=== PATIENT | male | born 1990 ===

== ENCOUNTER 2018-09-20 11:01 | Emergency (ER) | payer OTHER ==
[2018-09-20 11:09] VITALS: BMI 29.4
[2018-09-20] MEDS ORDERED: Sodium Chloride 0.9% 1,000 ML IV STA (11:33)
[2018-09-20] MEDS ORDERED: Simethicone 80 mg Chewtab PO STA (11:48)
[2018-09-20 12:47] LABS: ALB/GLOB RATIO 1.3 (1.0-2.1); ALBUMIN 4.9 g/dL (3.5-5.0); ALT/SGPT 33 U/L (21-72); AST/SGOT 31 U/L (17-59); BLOOD UREA NITROGEN 13 mg/dl (9-20); CALCIUM 10.1 mg/dL (8.4-10.2); GFR NON-AFRICAN AMERICAN > 60
[2018-09-20 12:51] LABS: BASO % 0.3 % (0.0-2.0); EOS % 0.5 % (0.0-4.0); HEMOGLOBIN 15.9 g/dL (12.0-18.0); LYMPH # 1.3 K/uL (1.0-4.3); LYMPH % 21.8 % (20.0-40.0); MEAN CELL VOLUME 83.1 fl (80.0-94.0); MEAN CORPUSCULAR HEMOGLOBIN 28.5 pg (27.0-31.0); MEAN CORPUSCULAR HGB CONC 34.3 g/dL (33.0-37.0); MEAN PLATELET VOLUME 9.1 fl (7.2-11.7); MONO # 0.3 K/uL (0.0-0.8); MONO % 5.7 % (0.0-10.0); NEUT # 4.2 K/uL (1.8-7.0); NEUT % 71.7 % (50.0-75.0); NRBC % 0.2 % (0.0-0.0); RBC 5.56 Mil/uL (4.40-5.90); RED CELL DISTRIBUTION WIDTH 13.1 % (11.5-14.5); WHITE BLOOD COUNT 5.8 K/uL (4.8-10.8)
--- NOTE | 2018-09-20 13:06 | ED PDOC ---
HPI: Abdomen Time Seen by Provider: 09/20/18 11:32 Chief Complaint (Nursing): Abdominal Pain Chief Complaint (Provider): Abdominal Pain History Per: Patient History/Exam Limitations: no limitations Onset/Duration Of Symptoms: Days (x1) Current Symptoms Are (Timing): Still Present Location Of Pain/Discomfort: Diffuse Associated Symptoms: Diarrhea Additional Complaint(s): 27 year old male with no significant past medical history who is presenting to the ED for evaluation of episodes of severe abdominal pain associated with diarrhea onset last night. Patient states that he has approximately 6 episodes today and during episodes he reports shooting pain down both arms (worse in left arm) and radiating down to legs and up to neck. He states that he has never had similar episodes in the past and admits that he began to feel ill after eating taco espino[employer] yesterday, however severity increased today. PMD: none provided Past Medical History Reviewed: Historical Data, Nursing Documentation, Vital Signs Vital Signs: Last Vital Signs Temp 97.4 F L 09/20/18 11:08 Pulse 77 09/20/18 11:08 Resp 17 09/20/18 11:08 BP 117/71 09/20/18 11:08 Pulse Ox 98 09/20/18 11:08 - Medical History PMH: Asthma (as child) - Surgical History Surgical History: Hernia Repair - Family History Family History: States: Unknown Family Hx - Social History Current smoker - smoking cessation education provided: No Alcohol: Social Drugs: Denies - Home Medications Home Medications: Ambulatory Orders Medication Instructions Recorded No Known Home Med 09/20/18 - Allergies Allergies/Adverse Reactions: Allergies Allergy/AdvReac Type Severity Reaction Status Date / Time shrimp Allergy ITCHING Verified 09/20/18 11:20 Review of Systems ROS Statement: Except As Marked, All Systems Reviewed And Found Negative Gastrointestinal: Positive for: Abdominal Pain, Diarrhea Musculoskeletal: Positive for: Neck Pain, Arm Pain, Leg Pain Physical Exam - Reviewed Nursing Documentation Reviewed: Yes Vital Signs Reviewed: Yes - Physical Exam Appears: Positive for: Non-toxic, No Acute Distress Head Exam: Positive for: ATRAUMATIC, NORMAL INSPECTION, NORMOCEPHALIC Skin: Positive for: Normal Color, Warm, DRY Eye Exam: Positive for: Normal appearance Cardiovascular/Chest: Positive for: Regular Rate, Rhythm. Negative for: Murmur Respiratory: Positive for: Normal Breath Sounds. Negative for: Respiratory Distress Gastrointestinal/Abdominal: Positive for: Soft, Tenderness (diffuse abdominal tenderness ) Back: Positive for: Normal Inspection. Negative for: L CVA Tenderness, R CVA Tenderness Extremity: Positive for: Normal ROM. Negative for: Deformity, Swelling Neurological/Psych: Positive for: Awake, Alert, Normal Tone, Oriented. Negative for: Motor/Sensory Deficits - Laboratory Results Result Diagrams: 09/20/18 11:42 09/20/18 11:42 Lab Results: Total Bilirubin 0.8 mg/dl (0.2-1.3) 09/20/18 11:42 AST 31 U/L (17-59) 09/20/18 11:42 ALT 33 U/L (21-72) 09/20/18 11:42 Alkaline Phosphatase 88 U/L (38-126) 09/20/18 11:42 Total Protein 8.8 G/DL (6.3-8.2) H 09/20/18 11:42 Albumin 4.9 g/dL (3.5-5.0) 09/20/18 11:42 Globulin 3.8 gm/dL (2.2-3.9) 09/20/18 11:42 Albumin/Globulin Ratio 1.3 (1.0-2.1) 09/20/18 11:42 - ECG O2 Sat by Pulse Oximetry: 98 (RA) Pulse Ox Interpretation: Normal Medical Decision Making Medical Decision Making: Time: 11:33 A/P: Workup for diarrhea and dehydration --Labs, IV fluids --Zofran and Simethicone --Reevaluate patient Scribe Attestation: Documented by Rosy Noriega, acting as a scribe for Daiana Barclay MD. Provider Scribe Attestation: All medical record entries made by the Scribe were at my direction and personally dictated by me. I have reviewed the chart and agree that the record accurately reflects my personal performance of the history, physical exam, medical decision making, and the department course for this patient. I have also personally directed, reviewed, and agree with the discharge instructions and disposition. Disposition - Clinical Impression Clinical Impression: Abdominal discomfort, Diarrhea - Disposition Referrals: [facility] [Outside] Disposition: Routine/Home Disposition Time: 13:47 Condition: IMPROVED Additional Instructions: Increase rest and hydration while symptoms last. Follow up with primary medical doctor. Return to the emergency department if symptoms worsen, last more than one week, or if new symptoms develop. Instructions: Diarrhea and Traveler's Diarrhea, Adult (DC), Stomach Ache and Stomach Upset Forms: [facility] (Mongolian), [facility] ED School/Work Excuse Print Language: STATELESS
[2018-09-20 13:57] VITALS: BP 112/64; PULSE 66; RESP 14; TEMP 98.1
[2018-10-01 10:38] VITALS: O2SAT 98
== END 2018-09-20 13:56 | disposition home or self-care (01) ==
LOC: H.ER 11:01
DX: R10.9 Unspecified abdominal pain (principal); R19.7 Diarrhea, unspecified; J45.909 Unspecified asthma, uncomplicated
CPT/HCPCS: 80053; 85025; 96361; 96374; 99284; J2405; J7030